=== PATIENT | female | born 1985 | race Caucasian/White ===

== ENCOUNTER 2019-03-08 08:46 | Day surgery (SDC) | payer OTHER ==
[~2019-03-08] VITALS: Ht 170.2 cm; Wt 96.6 kg
[~2019-03-08 08:46] MED LIST: DUEXIS 800-26.1 EACH PO; ULTRAM50 MG PO; VITAMIN D5000 UNIT PO
[2019-03-08 09:03] LABS: HEMATOCRIT 42.3 % (36.0-48.0); MCH 29.3 pg (26.0-34.0); MCHC 33.1 g/dL (31.0-37.0); MCV 88.5 fL (80.0-100.0); MEAN PLATELET VOLUME 11.7 fL (7.4-10.4); RBC 4.78 10x6/uL (4.00-5.40); RDW 14.3 % (11.5-14.5); WBC 5.7 10x3/uL (4.8-10.8)
[2019-03-08] MEDS ORDERED: ALEVE220 MG PO (10:29)
[2019-03-08 10:32] VITALS: BP 113/54; Ht 170.2 cm; Wt 96.6 kg
[2019-03-08 10:45] LABS: HCG URINE NEGATIVE (NEGATIVE)
--- NOTE | 2019-03-08 13:55 | NUR ---
7039 DR FALK CALLED FOR SOME SICHARGE ORDERS AND RX FOR PAIN
--- NOTE | 2019-03-08 14:06 | NUR ---
1405 PT NAUSEATED, DR FALK AT DESK ORDERS FOR SCOPE PATCH AND ZOFRAN. PT HAS A SCOPE PATCH ON RT EAR.
--- NOTE | 2019-03-08 14:43 | NUR ---
1430 VOMITED APPROX 300ML LIQUID AFTER STARTING TO EAT A FULL LIQ TRAY. IV D5W STARTED FOR A BOLUS FOR N/V. PT STATED SHE FEELS A LITTEL BETTER. PALE.
--- NOTE | 2019-03-08 15:41 | NUR ---
5658 DR FALK CALLED ABOUT PTS CONTINUED NAUSEA. ORDERS GIVEN AND NOTED
--- NOTE | 2019-03-08 17:08 | NUR ---
1630 PT FEELING BETTER. KANDY DONALD. 1700 IV REMOVED INSTRUCTIONS GIVEN. 1710 PT IN THE BATHROOM TRYING TO URINATE
--- NOTE | 2019-03-08 17:51 | NUR ---
1705 IV REMOVED AND PRESSURE HELD. DRESSING APPLIED. REFILLED ICE PACKS 1745 PT VOIDED A MODERATE AMT OF CLEAR YELLOW URINE
--- NOTE | 2019-03-10 15:59 | HP ---
PATIENT: ROBERTO CHAVIRA MEDICAL RECORD: [id number] ACCOUNT: [id number] LOCATION:[facility] : 87 ADMISSION DATE: 03/08/19 PCP: WILMER SOLIZ MD HISTORY AND PHYSICAL EXAMINATION CHIEF COMPLAINT: Gallstones. HISTORY OF PRESENT ILLNESS: This is a patient of Dr. Sinha. 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 She has been having gallbladder symptoms. They have included right upper quadrant pain as well as mid back spasms. They have been severe and intermittent since August. They have increased in severity and in frequency over the past month. Recently, the pain was a 10/10. REVIEW OF SYSTEMS: Positive for glasses, contacts, constipation. 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 ALLERGIES: PENICILLIN, CODEINE, MACROBID. HOME MEDICATIONS: Please see the nursing list. PHYSICAL EXAMINATION: GENERAL: The patient does not appear acutely ill. She does not appear chronically ill. VITAL SIGNS: Reviewed. The entire physical examination was performed in the presence of a female nurse. EARS: External ears appear normal. EYES: Extraocular movements are intact. NECK: Trachea is midline. CHEST: No intercostal retractions. PULMONARY: Nonlabored, no stridor. IMPRESSION: Symptomatic gallstones. PLAN: Laparoscopic cholecystectomy, intraoperative cholangiography, and possible liver biopsy. I specifically discussed with her the risk of an open procedure, risk of bleeding requiring emergency reoperation, risk of common bile duct injury, the risk of intestinal injury. TRANSINT:[id number] Voice Confirmation ID: [id number] DOCUMENT ID: [id number] TARAH FALK MD at 1559 CC: LEN CALHOUN M.D. and REBECCA SOLIZ [id number] DICTATION DATE: 03/08/19 1055 RN MILITARY: 03/08/19 1107 [facility] 03/08/19 [id number] [place] [address]
--- NOTE | 2019-03-10 16:07 | OP ---
PATIENT NAME: ROBERTO CHAVIRA MEDICAL RECORD: [id number] :87 LOCATION:[facility] ADMISSION DATE: SURGEON: TARAH FALK MD DATE OF OPERATION: 03/08/2019 PREOPERATIVE DIAGNOSIS: Symptomatic gallstones. POSTOPERATIVE DIAGNOSIS: Symptomatic gallstones. PROCEDURES: 1. Laparoscopic cholecystectomy. 2. Intraoperative cholangiography without immediate surgeon interpretation. SURGEON: Tarah Falk MD CRIMINAL INVESTIGATIVE AGENT: None. BLOOD LOSS: Minimal. ANESTHESIA: General. COMPLICATIONS: None. The risks, possible complications and alternatives to procedure were explained to the patient. She elected to proceed. DESCRIPTION OF PROCEDURE: The patient was conveyed to the operating room electively on 03/08/2019. General anesthesia was induced by the anesthesia staff. The abdomen was sterilely prepped and draped. A small skin swetha was accomplished in the left upper quadrant. A Veress needle was inserted through the skin swetha into the peritoneal cavity. CO2 insufflation was begun. Once a sufficient pneumoperitoneum had been achieved, a 5-mm trocar was inserted through an incision in the right upper quadrant. Under direct internal vision utilizing a television camera, a 12-mm trocar was inserted through an incision at the umbilicus. Another 5-mm trocar was inserted through an incision in the left upper quadrant. Another 5-mm trocar was inserted through an incision far laterally in the right upper quadrant. During insertion of the Veress needle and all trocars, there appeared to have been no injury to the bowels, any intraperitoneal or retroperitoneal structures. An abdominal survey was undertaken. No adhesions were noted. The liver was of normal size and architecture. I advanced a cholangiogram trocar. I punctured the fundus of the gallbladder. I aspirated bile. I then injected dye. Under real time fluoroscopy, static images were obtained. These were sent to the radiologist for interpretation. I aspirated bile. I then removed the cholangiogram trocar. The gallbladder was grasped and retracted cephalad. The infundibulum was grasped and retracted laterally. Blunt dissection was begun in the triangle of Calot. Two cystic arteries and one cystic duct were identified. These were clipped multiply and divided between clips. The gallbladder was then excised from its bed in the liver. It was placed within a bag retrieval device and was withdrawn through the umbilical fascia OPERATIVE REPORT [id number] COMERMA,ROBERTO TRINH defect. There had been some spillage of a stone and it was retrieved with a second endoscopic retrieval bag. I irrigated and aspirated the right upper quadrant. There was no bleeding even at low pressure of 8. All the trocars were removed and the abdomen desufflated. The fascia at the umbilicus was closed with a [id number] 0 Vicryl suture. Skin at the umbilicus was closed with interrupted 4-0 Vicryl Rapide sutures. The other skin incisions were closed with interrupted intracuticular 3-0 Vicryls. Benzoin and Steri-Strips were applied. The patient was then extubated and conveyed to post-anesthesia care unit where she was in stable condition. TRANSINT:[id number] Voice Confirmation ID: [id number] DOCUMENT ID: [id number] TARAH FALK MD at 1607 CC: REBECCA SOLIZ [id number] DICTATION DATE: 03/08/19 1413 BACTERIOLOGIST DAIRY: 03/08/19 1610 [facility] 03/08/19 [id number] [place] [address]
== END 2019-03-08 17:45 | disposition home or self-care (01) ==
LOC: D.OPS 08:46 → D.PAN 10:45 → D.OPS 17:45
PROVIDERS: Anesthesiology; ATTEND Surgery
DX: K80.10 Calculus of gallbladder with chronic cholecystitis without obstruction (principal); Z01.812 Encounter for preprocedural laboratory examination